=== PATIENT | female | born 1945 | race Caucasian/White ===

== ENCOUNTER 2018-08-15 01:13 | Inpatient (IN) ==
[2018-08-15] MEDS ORDERED: Naloxone 0.4 MG/ML INJ IVP PRN (04:29)
--- NOTE | 2018-08-15 04:46 | Internal Med History&Physical ---
<America Aguayo E - Last Filed: 08/15/18 05:55> Date of Encounter: 08/15/18 Time of Encounter: 03:00 Internal Medicine - H&P: HPI Chief complaint: shortness of breath Admitted From: Home Plans for Post Hospital Care: Home History of present illness: Ms. Ying is a 72 year old female with history of ductal carcinoma of the breast in 2011. {Patient presented to [facility] ED after feeling worse 3 days after being seen at Urgent care for cough. Patient states she has had a cough that has been non productive for the last month and it has progressively gotten worse. She states that it has gotten to the point that it gives her a severe headache and she feels that she cannot get her breath. Approximately 2 weeks ago she was seen at an outside facility and was diagnosed with bronchitis and was given doxycycline which caused her to have diarrhea and to feel achy all over, she continued to take it though because she wanted to get rid of the cough. 3 days ago she presented to urgent care with worsening cough and was told she had pneumonia, was placed on omnicef, zantac, and reglan. She stated she started coughing so hard yesterday that she felt like her insides were bruised and her insisted she go to the ED. She states she has had some chest pain worse with deep breath, headache, chills, nasal congestion, sore throat, body aches, minimal swelling in her ankles, cough worse when lying flat, and diarrhea since starting doxycyline. She denies abdominal pain, dysuria, hesitancy, frequency, urgency. At [facility] her labs showed WBC 10 with neutrophil predominance, HGb 13.4, Na 140, K 3.6 Glu 130, Cr 0.9, GFR >60, AST 1, ALT 17, Alk Phos 101, BNP 76217, LA 1.7, Troponin 0.19 redrawn at 0.18 Vitals at [facility] Temp 98.9, HR 120 RR 22 BP 119/57 Oxygen sat 92% on 2L EKG showed sinus tach Patient was given Furosemide 40mg IV, LEvofloxacin 500mg 1x, methylprenisolone 125mg 1x, albuterol nebulizer and transferred to [place] Social history: past history of smoking quit over 20 years ago, denies alcohol use, denies drug use Family history: mother liver cancer, father congestive heart failure, brother heart disease Past Med Surg Social Fam HX - Past Medical History Medical history: arthritis, cancer Additional medical history: diverticulosis,sleep apnea - Past Surgical History Surgical History: hysterectomy Additional surgical history: hemorrhoidectomy,lumpectomy,rectocele,stent r iliac - Social History Smoking Status: Former smoker Alcohol use: none Drug use: none Internal Medicine - H&P: Meds Aspirin Enteric Coated [Aspirin EC] 81 mg PO DAILY 11/13/14 [History] Cholecalciferol (Vitamin D3) [Vitamin D] 2,000 unit PO DAILY #90 capsule 11/13/14 [Rx] Ibuprofen [Motrin] 4 tab PO PRN PRN 11/13/14 [History] Omeprazole [PriLOSEC] 40 mg PO DAILY 11/13/14 [History] diazePAM [Valium] 5 mg PO QID 07/09/16 [History] Allergy/AdvReac Type Severity Reaction Status Date / Time nitrofurantoin Allergy Rash Verified 02/09/18 15:49 [From Macrodantin] Sulfa (Sulfonamide Allergy Rash Verified 02/09/18 15:49 Antibiotics) tramadol Allergy Rash Verified 02/09/18 15:49 exemestane AdvReac Rash Verified 02/09/18 15:49 letrozole AdvReac Rash Verified 02/09/18 15:49 pegfilgrastim [From Neulasta] AdvReac Cramping Verified 02/09/18 15:49 of the Muscles All Systems PM: A 10-system review of systems was performed and is negative for pertinent findings except as documented above in the HPI. - Constitutional Constitutional: chills, fatigue, no anorexia, no fever(s) - EENT Eyes: no change in vision Ears: no decreased hearing Nose, mouth and throat: dry mouth, nasal congestion, sinus pain, sinus pressure - Cardiovascular Cardiovascular ROS IM: chest pain (with coughing), dyspnea, dyspnea on exertion, edema, no irregular heart rhythm, no lightheadedness, no palpitations - Respiratory Respiratory: cough, dyspnea, dyspnea on exertion, wheezing, pain with cough - Gastrointestinal Gastrointestinal: diarrhea, no constipation, no nausea, no vomiting - Musculoskeletal Musculoskeletal ROS IM: no back pain, no joint swelling - Integumentary Integumentary IM: no new lesions, no pruritus, no rash - Neurological Neurological ROS: no dizziness, no focal weakness, no weakness - Constitutional Vitals: Temp Pulse Resp BP Pulse Ox 98.1 F 104 16 131/81 90 08/15/18 01:50 08/15/18 01:50 08/15/18 01:50 08/15/18 01:50 08/15/18 01:50 Exam: General: AAOx3, moderate distress, answers questions appropriately Head: atruamatic, normocephalic Eyes: NI, no icterus, extraocular movements intact Mouth: mucous membranes moist Neck: trachea midline Cardio: tachycardic, regular rhythm, no murmurs rubs or gallops Resp: tachypnic, increased work of breathing, wheezing throughout bilateral lung leach, diminished breath sound bilateral lower lobes Abdominal: normal bowel sounds, no gaurding or rigidity Extremities: no pedal edema, pulses equal bilaterlaly Skin: warm, dry, intact - Assessment and Plan (1) Acute congestive heart failure Current Visit: Yes Status: Acute Assessment and plan: Patient has symptoms of CHF including cough worse with lying flat Differentials include malignancy, valvular heart disease, ischemic heart disease Elevated troponin 0.19 decreased to 0.18 BNP 27235 EKG showed sinus tachycardia Echocardiogram IV lasix 40mg daily Strict I's and O's DAily weights Cardiology referral Qualifiers: Heart failure type: unspecified Qualified Code(s): I50.9 - Heart failure, unspecified (2) Elevated troponin Current Visit: Yes Status: Acute Assessment and plan: Jesse 0.19 decreased to 0.18 demand ichemia vs underlying ischemic disease EKG showed tachycardia without ischemic changes from Jesse Continue to trend troponins Cardiology referral (3) Pleural effusion Current Visit: Yes Status: Suspected Assessment and plan: CXR from [facility] suspicious for Plueral effusion Differentials include CHF vs Malignant effusion vs infection CT angio ordered Consult Pulmonary for possible tap Serum LDH and Serum Protein ordered (4) DVT prophylaxis Current Visit: Yes Status: Acute Assessment and plan: scds - Time Spent With Patient Total time spent is greater than 50% in coordination of care (as documented) at patient's floor/unit and/or counseling patient: <Bronson Franks A - Last Filed: 08/15/18 07:23> Date of Encounter: 08/15/18 Internal Medicine - H&P: HPI History of present illness: Ms. Ying is a 72 year old female All Systems PM: A 10-system review of systems was performed and is negative for pertinent findings except as documented above in the HPI. - Constitutional Vitals: Temp Pulse Resp BP Pulse Ox 97.8 F 100 16 124/82 90 08/15/18 06:55 08/15/18 06:55 08/15/18 06:55 08/15/18 06:55 08/15/18 06:55 Internal Med - H&P Results - Labs CBC & Chem 7: 08/15/18 05:43 08/15/18 05:43 Labs: Short CBC 08/15/18 Range/Units 05:43 WBC 8.0 (4.3-11.1) K/mcL Hgb 12.9 (11.5-15.4) g/dL Hct 39.1 (35.3-44.9) % Plt Count 233 (140-400) K/mcL Neutrophils # 7.2 (1.6-8.9) K/mcL BMP 08/15/18 05:43 Sodium 139 Potassium 3.2 L Chloride 100 Carbon Dioxide 25 BUN 10 Creatinine 0.81 Glucose 176 H Calcium 9.0 Cardiac Enzymes 08/15/18 Range/Units 05:43 Troponin I 0.15 H* (< 0.04) ng/mL Liver Function 08/15/18 Range/Units 05:43 Total Bilirubin 1.1 H (0.3-1.0) mg/dL AST 14 (13-39) Units/L ALT 9 (7-52) Units/L Alkaline Phosphatase 47 (34-104) Units/L Albumin 3.8 (3.5-5.7) g/dL - Time Spent With Patient Total time spent is greater than 50% in coordination of care (as documented) at patient's floor/unit and/or counseling patient: - Attending Attestation I performed a history and physical examination of the patient and discussed her management with the resident. I reviewed the resident's note and agree with the assessment and plan of care. In short patient is a 72-year-old female with a past medical history of breast cancer status post lumpectomy chemotherapy and radiation in 2012 and GERD who initially presented to [facility] due to complaints of increasing shortness of breath. Patient reports she has been marques ving increased dyspnea on exertion for the past month. She reports dyspnea is worse with laying down. No reports of PND or lower extremity edema or chest pain. She is also reporting a chronic cough that is nonproductive which is also worse with lying down. No reports of fever but does endorse night sweats. Per reports from [facility] chest x-ray showed a large pleural effusion. Troponins were also found to be mildly elevated. Patient was transferred here for further workup for possible CHF and etiology of her pleural effusion. On my assessment patient was lying in bed in no acute distress. She was mildly tachypneic. O2 saturations were 92% on 5 L. Patient is not on oxygen at home. Diminished breath sounds were noted at the left lung base. No evidence of lower extremity edema. Heart regular rate and rhythm. Differential includes CHF exacerbation, malignant pleural effusion given history of breast cancer, or pneumonia among others. We will repeat labs. We will obtain a stat CT angiogram to further assess pleural effusion. We will obtain an echocardiogram. Strict I's and O's. Daily weights. We will continue Lasix 40 mg IV push daily. Consult cardiology. Consider consult pulmonary if findings on CT consistent with a large pleural effusion requiring paracentesis.
[2018-08-15] MEDS ORDERED: Isovue-370 500 ML BOTTLE IVP ONE (05:37)
[2018-08-15 05:55] LABS: Basophils % 0.3 %; Hematocrit 39.1 % (35.3-44.9); Hemoglobin 12.9 g/dL (11.5-15.4); Immature Granulocytes % 0.5 % (0-4); Lymphocytes # 0.5 K/mcL (0.6-4.6); Mean Corpuscular Hemoglobin 29.5 pg (28.0-33.3); Mean Corpuscular Volume 89.3 fL (83.0-100.0); Mean Platelet Volume 10.7 fL (9.4-12.4); Monocytes # 0.2 K/mcL (0.0-1.3); Monocytes % 2.4 %; Neutrophils # 7.2 K/mcL (1.6-8.9); Platelet Count 233 K/mcL (140-400); Red Blood Count 4.38 M/mcL (3.82-4.97); Red Cell Distribution Width 14.1 % (11.5-14.5); Segmented Neutrophils % 90.8 %
[2018-08-15 06:14] LABS: Alanine Aminotransferase 9 Units/L (7-52); Albumin 3.8 g/dL (3.5-5.7); Albumin/Globulin Ratio 1.3 (1.1-2.2); Alkaline Phosphatase 47 Units/L (34-104); Aspartate Amino Transferase 14 Units/L (13-39); BUN/Creatinine Ratio 12 (6-26); Bilirubin,Total 1.1 mg/dL (0.3-1.0); Blood Urea Nitrogen 10 mg/dL (8-23); Carbon Dioxide 25 mEq/L (23-29); Chloride 100 mEq/L (98-107); Glucose 176 mg/dL (70-105); Magnesium 1.7 mg/dL (1.6-2.6); Osmolality,Calculated 291 (280-300); Potassium 3.2 mEq/L (3.5-5.1); Sodium 139 mEq/L (136-145); Total Protein 6.8 g/dL (6.4-8.9); eGFR For Non-African Americans > 60 (> 60)
[2018-08-15 06:18] LABS: Troponin I 0.15 ng/mL (< 0.04)
--- NOTE | 2018-08-15 08:34 | Event Note ---
Date of Encounter: 08/15/18 Time of Encounter: 11:00 Patient was seen and evaluated by hospitalist earlier this morning and also by myself. 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 Apparently patient has recently been treated for bronchitis as an outpatient with doxycycline and later treated for pneumonia with Omnicef. At [facility] ER [place] [address] with a troponin of 0.19. Also on supplemental oxygenation at 2 L/m with O2 sats at 92%. She was given 1 dose of IV Levaquin and IV furosemide in addition to IV Cymetra and transferred to [facility] for further management and evaluation. 1. Bilateral pulmonary embolism CTA revealed small bilateral peripheral pulmonary emboli Lower extremity Dopplers pending Will initiate heparin drip 2. Acute CHF Workup in progress including echocardiogram that is pending Continue IV diuresis 3. Elevated troponin Will monitor on telemetry and trend serial troponins; echocardiogram as above Cardiology consult pending 4 Pleural effusion Patient with bilateral pleural effusions, left greater than right noted on CT angiogram of the chest Suspect secondary to acute CHF above 5. Acute hypoxic respiratory failure He should not currently requiring 5 L/m of nasal cannula
[2018-08-15] MEDS: Aspirin Enteric Coated 81 MG Tablet PO SCH (08:38)
[2018-08-15] MEDS: Furosemide 40 MG/4 ML VIAL IVP SCH (08:38)
[2018-08-15] MEDS: Cholecalciferol (D-3) 1,000 UNIT TABLET PO SCH (08:38)
[2018-08-15] MEDS ORDERED: *HR* Heparin 5,000 UNIT/ML VIAL IVP ONE (12:31)
[2018-08-15] MEDS ORDERED: *HR* Heparin 5,000 UNIT/ML VIAL IVP PRN ×2 (12:31)
--- NOTE | 2018-08-15 12:58 | Cardiology Consult Note ---
Date of Encounter: 08/15/18 Time of Encounter: 12:46 Assessment and Plan (1) SOB (shortness of breath) Current Visit: Yes Status: Acute Clincally could be acute CHF. Would diurese and check echo. Discussion w patient/family: The assessment and plan as outlined above was discussed with the patient and/or family members who expressed understanding and agreement. All questions were answered. Thank you for involving us in the care of your patient. Please call with any questions. History of Present Illness Consult date: 08/15/18 Requesting physician: Rogelio Glez Consult reason: CHF Chief complaint: SOB History of present illness: Ms. Ying is a 72 year old female with no previous cardiac history who presents to hosp with several weeks of SOB. She had been treated for both bronchitis and pneumonia and symptoms did not resolve. She admits do coughing and orthopnea. She has had chest pain but mostly related to coughing. Past Med Surg Social Fam HX - Past Medical History Medical history: arthritis, cancer Additional medical history: diverticulosis,sleep apnea Psychiatric history: anxiety - Past Surgical History Surgical History: hysterectomy Additional surgical history: hemorrhoidectomy,lumpectomy,rectocele,stent r iliac - Social History Smoking Status: Former smoker Smokeless Tobacco Status: No Alcohol use: none Drug use: none Medications and Allergies Aspirin Enteric Coated [Aspirin EC] 81 mg PO DAILY 11/13/14 [History] Cholecalciferol (Vitamin D3) [Vitamin D] 2,000 unit PO DAILY #90 capsule 11/13/14 [Rx] Ibuprofen [Motrin] 4 tab PO PRN PRN 11/13/14 [History] Omeprazole [PriLOSEC] 40 mg PO DAILY 11/13/14 [History] diazePAM [Valium] 5 mg PO QID 07/09/16 [History] Allergy/AdvReac Type Severity Reaction Status Date / Time nitrofurantoin Allergy Rash Verified 02/09/18 15:49 [From Macrodantin] Sulfa (Sulfonamide Allergy Rash Verified 02/09/18 15:49 Antibiotics) tramadol Allergy Rash Verified 02/09/18 15:49 exemestane AdvReac Rash Verified 02/09/18 15:49 letrozole AdvReac Rash Verified 02/09/18 15:49 pegfilgrastim [From Neulasta] AdvReac Cramping Verified 02/09/18 15:49 of the Muscles All Systems Review: The remainder of the systems were reviewed and are negative Physical Examination Vital Signs, Last 4 Hours Temp Pulse Resp BP Pulse Ox 08/15/18 11:01 97.7 F 110 18 122/82 93 General: Conversant, No Apparent Distress HEENT: Atraumatic, Normocephaly, Mucus Membranes Moist Neck: No JVD, Normal carotid pulses Cardiac: Reg Rate and Rhythm, Normal S1 and S2, No Murmur Lungs: Other (Decreased at bases.) Neuro: Alert and responsive, No focal deficits noted Abdomen: Soft, Non-Tender Skin: No rashes noted on visualized skin Results 08/15/18 05:43 08/15/18 05:43 Lab Results 08/15/18 08/15/18 08/15/18 05:43 05:43 05:43 WBC 8.0 Hgb 12.9 Hct 39.1 Plt Count 233 Sodium 139 Potassium 3.2 L Chloride 100 Carbon Dioxide 25 BUN 10 Creatinine 0.81 Glucose 176 H Calcium 9.0 Magnesium 1.7 Total Bilirubin 1.1 H AST 14 ALT 9 Alkaline Phosphatase 47 Troponin I 0.15 H* 08/15/18 11:13 WBC Hgb Hct Plt Count Sodium Potassium Chloride Carbon Dioxide BUN Creatinine Glucose Calcium Magnesium Total Bilirubin AST ALT Alkaline Phosphatase Troponin I 0.12 H* Consult Discharge Plan - Plan Referrals: NONE,PCP [Primary Care Provider] -
[2018-08-15 14:03] LABS: Hematocrit 40.8 % (35.3-44.9); Hemoglobin 13.5 g/dL (11.5-15.4); Mean Corpuscular HGB Conc 33.1 g/dL (31.6-35.5); Mean Corpuscular Hemoglobin 29.4 pg (28.0-33.3); Mean Corpuscular Volume 88.9 fL (83.0-100.0); Mean Platelet Volume 11.3 fL (9.4-12.4); Platelet Count 262 K/mcL (140-400); Red Blood Count 4.59 M/mcL (3.82-4.97)
[2018-08-15 14:10] LABS: Heparin anti-factor XA UFH 0.02 IU/mL (0.30-0.70)
[2018-08-15 14:11] LABS: INR 1.3; Prothrombin Time 14.4 Seconds (9.4-12.1)
[2018-08-15] MEDS: Heparin 25,000 UNIT/250 ML D5W 25,000 UNIT/250 ML IV.SOLN IVC SCH (15:03)
[2018-08-16 08:16] LABS: Basophils % 0.3 %; Eosinophils # 0.1 K/mcL (0.0-0.6); Eosinophils % 1.3 %; Hematocrit 40.5 % (35.3-44.9); Hemoglobin 13.2 g/dL (11.5-15.4); Immature Granulocytes % 0.5 % (0-4); Lymphocytes # 2.1 K/mcL (0.6-4.6); Lymphocytes % 20.3 %; Mean Corpuscular HGB Conc 32.6 g/dL (31.6-35.5); Mean Corpuscular Hemoglobin 29.6 pg (28.0-33.3); Mean Corpuscular Volume 90.8 fL (83.0-100.0); Mean Platelet Volume 11.1 fL (9.4-12.4); Monocytes # 0.9 K/mcL (0.0-1.3); Monocytes % 8.1 %; Neutrophils # 7.3 K/mcL (1.6-8.9); Platelet Count 248 K/mcL (140-400); Red Blood Count 4.46 M/mcL (3.82-4.97); Red Cell Distribution Width 14.3 % (11.5-14.5); Segmented Neutrophils % 69.5 %
[2018-08-16 08:36] LABS: Alanine Aminotransferase 9 Units/L (7-52); Albumin 3.5 g/dL (3.5-5.7); Albumin/Globulin Ratio 1.2 (1.1-2.2); Alkaline Phosphatase 44 Units/L (34-104); Aspartate Amino Transferase 14 Units/L (13-39); BUN/Creatinine Ratio 22 (6-26); Bilirubin,Total 0.8 mg/dL (0.3-1.0); Blood Urea Nitrogen 18 mg/dL (8-23); Carbon Dioxide 28 mEq/L (23-29); Chloride 101 mEq/L (98-107); Cholesterol 233 mg/dL (< 200); Glucose 99 mg/dL (70-105); HDL Cholesterol 58 mg/dL (40-59); LDL Cholesterol,Calculated 159 mg/dL (0-99); Magnesium 1.9 mg/dL (1.6-2.6); Osmolality,Calculated 292 (280-300); Phosphorous 3.9 mg/dL (2.7-4.5); Potassium 3.3 mEq/L (3.5-5.1); Sodium 140 mEq/L (136-145); Total Protein 6.5 g/dL (6.4-8.9); Triglycerides 78 mg/dL (< 150); eGFR For Non-African Americans > 60 (> 60)
--- NOTE | 2018-08-16 10:11 | Internal Med Progress Note ---
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) who presented from) ER with symptoms of orthopnea and shortness of breath found to have acute hypoxic respiratory failure secondary to bilateral pulmonary embolism and pleural effusion with congestive heart failure Patient still requiring increased amount of O2 supplementation this morning - Exam Vitals: Temp Pulse Resp BP Pulse Ox 97.8 F 100 18 123/70 96 08/16/18 08:10 08/16/18 08:10 08/16/18 08:10 08/16/18 08:10 08/16/18 08:10 Exam: Gen.: Nonacute distress, alert and oriented 3 ENT: Mucosal membranes moist Respiratory: Lungs are clear to auscultation bilaterally without any wheezing rhonchi or rales Cardiovascular: Normal S1 and S2 regular rate rhythm no murmurs rubs or gallops Abdomen: Soft, nontender and nondistended with positive bowel sounds Extremities: No lower extremity edema Skin: Normal color - Assessment and Plan (1) Pulmonary embolism, bilateral Current Visit: Yes Status: Acute Assessment and Plan: Patient found to have small bilateral peripheral pulmonary emboli Lower extremity Dopplers pending Patient currently on heparin drip Given patient's history of invasive ductal breast carcinoma and 2013, will consult hematology oncology for recommendations for oral anticoagulation (2) Acute congestive heart failure Current Visit: Yes Status: Acute Assessment and Plan: Patient with a BNP of 427 on admission in addition to pleural effusions on imaging Echocardiogram pending Continue IV diuresis Cardiology following as above (3) Acute respiratory failure with hypoxia Current Visit: Yes Status: Acute Assessment and Plan: Patient requiring supplemental oxygenation at 4 L/m Suspect secondary to the above (4) Pleural effusion Current Visit: Yes Status: Acute Assessment and Plan: Patient on CT angiogram of the chest noted to have bilateral pleural effusions left greater than right Patient with suspected CHF and history of left breast invasive ductal carcinoma in 2013 Will consult pulmonology and appreciate recommendations (5) Elevated troponin Current Visit: Yes Status: Acute Assessment and Plan: Patient with elevated troponins have trended downward Suspect secondary to due to the above Cardiology following and appreciate recommendations (6) Pulmonary nodules Current Visit: Yes Status: Acute Assessment and Plan: Patient also noted to have a right middle lobe pulmonary nodule measuring 1-2 mm in addition to a small noncalcified pulmonary nodule and right lower lobe measuring 5-6 mm Given patient's history of breast cancer, pulmonology consulted and appreciate recommendations (7) Thyroid nodule Current Visit: Yes Status: Acute Assessment and Plan: CT angiogram of the chest, patient was found to have incidental finding of a left thyroid nodule Will order ultrasound for further evaluation DVT Prophylaxis: On heparin drip as above - Time Spent with Patient Total time spent is greater than 50% in coordination of care (as documented) at patient's floor/unit and/or counseling patient: Internal Medicine: Result - Labs CBC & Chem 7: 08/16/18 07:55 08/16/18 07:55 Labs: Short CBC 08/15/18 08/16/18 Range/Units 13:33 07:55 WBC 11.5 H 10.5 (4.3-11.1) K/mcL Hgb 13.5 13.2 (11.5-15.4) g/dL Hct 40.8 40.5 (35.3-44.9) % Plt Count 262 248 (140-400) K/mcL Neutrophils # 7.3 (1.6-8.9) K/mcL BMP 08/16/18 07:55 Sodium 140 Potassium 3.3 L Chloride 101 Carbon Dioxide 28 BUN 18 Creatinine 0.81 Glucose 99 Calcium 9.0 Cardiac Enzymes 08/15/18 08/15/18 Range/Units 11:13 16:28 Troponin I 0.12 H* 0.14 H* (< 0.04) ng/mL Liver Function 08/16/18 Range/Units 07:55 Total Bilirubin 0.8 (0.3-1.0) mg/dL AST 14 (13-39) Units/L ALT 9 (7-52) Units/L Alkaline Phosphatase 44 (34-104) Units/L Albumin 3.5 (3.5-5.7) g/dL - ABG Interpretation ABG results: PT/INR, D-dimer PT 14.4 Seconds (9.4-12.1) H 08/15/18 13:33 - Impressions Impressions Chest CTA 08/15/18 05:37 IMPRESSION: Small bilateral peripheral pulmonary emboli Bilateral pleural effusions with adjacent airspace disease in the lungs either atelectasis or pneumonia. Underlying emphysema with small indeterminate pulmonary nodules.. Consider chest CT in 3-6 months time Dominant thyroid nodule on the left. Consider thyroid ultrasound given its size The findings were sent to the Radiology Results Communication Center at 11:45 am on 08/15/2018to be communicated to a licensed caregiver. D/ / Burak Greenwood MD / Burak Greenwood MD Interpreting Provider: Burak Greenwood MD Consult Discharge Plan - Plan Referrals: NONE,PCP [Primary Care Provider] - (2) Acute congestive heart failure Qualifiers: Heart failure type: unspecified Qualified Code(s): I50.9 - Heart failure, unspecified
[2018-08-16] MEDS: Furosemide 40 MG/4 ML VIAL IVP SCH (10:23)
[2018-08-16] MEDS: Cholecalciferol (D-3) 1,000 UNIT TABLET PO SCH (10:23)
[2018-08-16] MEDS: Aspirin Enteric Coated 81 MG Tablet PO SCH (10:23)
--- NOTE | 2018-08-16 11:41 | Cardiology Progress Note ---
Date of Encounter: 08/16/18 Time of Encounter: 11:40 Assessment and Plan (1) SOB (shortness of breath) Current Visit: Yes Status: Acute Per Cardiology: Suspect multifactorial. On IV Lasix 40 mg daily with I&O net -2523. BNP only 427. CT showed bilateral PE. Awaiting echo results. (2) Pulmonary embolism, bilateral Current Visit: Yes Status: Acute Per Cardiology: CT: IMPRESSION: Small bilateral peripheral pulmonary emboli Bilateral pleural effusions with adjacent airspace disease in the lungs either atelectasis or pneumonia. Underlying emphysema with small indeterminate pulmonary nodules.. Consider chest CT in 3-6 months time On heparin drip. Management per primary service. (3) Elevated troponin Current Visit: Yes Status: Acute Per Cardiology: Troponin is flat and adynamic in setting of acute bilateral PE with peak of 0.15. Echo pending. On heparin drip. No cardiac rehabilitation consult warranted. Suspect type 2 demand ischemia. Discussion w patient/family: The assessment and plan as outlined above was discussed with the patient and/or family members who expressed understanding and agreement. All questions were answered. Thank you for involving us in the care of your patient. Please call with any questions. Subjective Principal diagnosis: SOB Interval history: Reports her shortness of breath has improved during stay. She denies any chest pain or palpitations. Denies any active bleeding or blood loss. Objective Vital Signs, Last 4 Hours Temp Pulse Resp BP Pulse Ox 08/16/18 08:10 97.8 F 100 18 123/70 96 General: Conversant, No Apparent Distress HEENT: Atraumatic, Normocephaly, Mucus Membranes Moist Neck: No JVD, Normal carotid pulses Cardiac: Reg Rate and Rhythm, Normal S1 and S2, No Murmur Lungs: Normal Breath Sounds, No Wheeze, Rales, Rhonchi Neuro: Alert and responsive, No focal deficits noted Abdomen: Soft, Non-Tender Skin: No rashes noted on visualized skin Musculoskeletal: No Chest Wall Tenderness Extremities: No Clubbing, No Cyanosis, No Edema, Normal Pulses Results 08/16/18 07:55 08/16/18 07:55 Lab Results Laboratory Tests 08/15/18 08/15/18 08/15/18 05:43 11:13 13:33 WBC Hgb Hct INR 1.3 Potassium Creatinine Est GFR (Non-Af Amer) AST ALT Troponin I 0.15 H* 0.12 H* B-Natriuretic Peptide LDL Cholesterol, Calc 08/15/18 08/16/18 08/16/18 16:28 07:55 07:55 WBC 10.5 Hgb 13.2 Hct 40.5 INR Potassium 3.3 L Creatinine 0.81 Est GFR (Non-Af Amer) > 60 AST 14 ALT 9 Troponin I 0.14 H* B-Natriuretic Peptide LDL Cholesterol, Calc 159 H 08/16/18 07:55 WBC Hgb Hct INR Potassium Creatinine Est GFR (Non-Af Amer) AST ALT Troponin I B-Natriuretic Peptide 427 H LDL Cholesterol, Calc ITS Impressions Chest CTA 08/15/18 05:37 IMPRESSION: Small bilateral peripheral pulmonary emboli Bilateral pleural effusions with adjacent airspace disease in the lungs either atelectasis or pneumonia. Underlying emphysema with small indeterminate pulmonary nodules.. Consider chest CT in 3-6 months time Dominant thyroid nodule on the left. Consider thyroid ultrasound given its size The findings were sent to the Radiology Results Communication Center at 11:45 am on 08/15/2018to be communicated to a licensed caregiver. D/ / Burak Greenwood MD / Burak Greenwood MD Interpreting Provider: Burak Greenwood MD Active Medications Aspirin (Aspirin Ec) 81 mg PO DAILY [facility] Stop: 02/14/19 09:01 Last Admin: 08/16/18 10:23 Dose: 81 mg Documented by: Furosemide (Lasix) 40 mg IVP DAILY [facility] Stop: 02/14/19 09:01 Last Admin: 08/16/18 10:23 Dose: 40 mg Documented by: Heparin Sodium (Porcine) (Heparin) 5,500 unit 70 unit/kg (5500 unit) IVP Q6HR PRN PRN Reason: SEE COMMENTS Stop: 02/14/19 12:32 Heparin Sodium (Porcine) (Heparin) 2,800 unit 35 unit/kg (2800 unit) IVP Q6H PRN PRN Reason: SEE COMMENTS Stop: 02/14/19 12:32 Heparin Sodium/Dextrose (Heparin 25,000 Unit/250 Ml D5w) 25,000 unit in 250 mls @ 11.088 mls/hr IVC .[id number] [facility]; Protocol Stop: 02/14/19 12:46 Last Titration: 08/16/18 10:20 Dose: 8 unit/kg/hr, 6.3 mls/hr Documented by: Naloxone HCl (Narcan) 0.4 mg IVP Q2MPRN PRN PRN Reason: SEE COMMENTS Stop: 02/14/19 04:30 Omeprazole (Prilosec) 40 mg PO DAILY@0630 [facility]; Protocol Stop: 02/14/19 08:01 Last Admin: 08/16/18 05:19 Dose: 40 mg Documented by: Vitamin D (Vitamin D) 1,000 unit PO DAILY [facility] Stop: 02/14/19 09:01 Last Admin: 08/16/18 10:23 Dose: 1,000 unit Documented by: - Imaging and Cardiology Echo: pending Consult Discharge Plan - Plan Referrals: NONE,PCP [Primary Care Provider] -
[2018-08-16] MEDS ORDERED: Perflutren Lipid Microsphere 1.3 ML in 0.9 % Sodium Chloride 8.7 ML IVP ONE (11:55)
[2018-08-16] MEDS ORDERED: Perflutren Lipid Microsphere 2 ML VIAL ONE (12:06)
--- NOTE | 2018-08-16 12:43 | Pulmonology Consult Note ---
Date of Encounter: 08/16/18 Time of Encounter: 11:10 Assessment and Plan (1) Pulmonary embolism, bilateral Current Visit: Yes Status: Acute Is not clear at this time and this was provoked with her acute illness with diagnosis of bronchitis/pneumonia or this is unprovoked especially with her past medical history of lung cancer. She is on anticoagulation and this time and elevation of troponin and BNP could be a marker related to pulmonary embolism, h owever elevated BNP can be found in congestive heart failure as well. Echocardiogram is pending. Cardiology is seeing the patient. I have seen the echocardiogram and my interpretation right side was functioning well, however we have to wait for the final interpretation from phone counselor. Suspect she will need long-term anticoagulation. He is hemodynamically stable and no need for any thrombolytics at this time. Thank you for consultation. (2) Pleural effusion Current Visit: Yes Status: Acute I have checked pleural effusion with ultrasound and generally small and diuresis is recommended. No need for thoracentesis at this time. (3) Pulmonary nodules Current Visit: Yes Status: Acute Very small lung nodules and not big enough for any biopsies and continue monitoring perhaps in 3-[address] chest is recommended. (4) Acute respiratory failure with hypoxia Current Visit: Yes Status: Acute This is multifactorial from most likely atelectasis and compression atelectasis from pleural effusion as well as pulmonary embolism. Anticoagulation and encourage incentive spirometry as well as diuresis History of Present Illness Consult date: 08/16/18 Requesting physician: Rogelio Glez Reason for consult: pulmonary embolism Chief complaint: Shortness of breath History of present illness: This is a pleasant 72-year-old female with past medical history of breast cancer and she stated that she has been treated for bronchitis and pneumonia and she presented to outside hospital emergency room and she denies any recent travel or any recent surgeries. Patient stated she quit smoking many years ago and she has been having nonproductive cough with no hemoptysis then she was diagnosed with pulmonary embolism with pleural effusion and pulmonary was consulted for evaluation. Patient was treated with antibiotics as outpatient. She did have some chest pain which was worsening with deep breath and she also had headaches and chills with nasal congestion. Patient stated that she is been having negative mammograms. She denies any history of known congestive heart failure and she denies any history of tuberculosis or sick contact. Past Med Surg Social Fam HX - Past Medical History Medical history: arthritis, cancer Additional medical history: diverticulosis,sleep apnea Psychiatric history: anxiety - Past Surgical History Surgical History: hysterectomy Additional surgical history: hemorrhoidectomy,lumpectomy,rectocele,stent r iliac - Social History Smoking Status: Former smoker Smokeless Tobacco Status: No Alcohol use: none Drug use: none Medications and Allergies Aspirin Enteric Coated [Aspirin EC] 81 mg PO DAILY 11/13/14 [History] Cholecalciferol (Vitamin D3) [Vitamin D] 2,000 unit PO DAILY #90 capsule 11/13/14 [Rx] Ibuprofen [Motrin] 4 tab PO PRN PRN 11/13/14 [History] Omeprazole [PriLOSEC] 40 mg PO DAILY 11/13/14 [History] diazePAM [Valium] 5 mg PO QID 07/09/16 [History] Allergy/AdvReac Type Severity Reaction Status Date / Time nitrofurantoin Allergy Rash Verified 02/09/18 15:49 [From Macrodantin] Sulfa (Sulfonamide Allergy Rash Verified 02/09/18 15:49 Antibiotics) tramadol Allergy Rash Verified 02/09/18 15:49 exemestane AdvReac Rash Verified 02/09/18 15:49 letrozole AdvReac Rash Verified 02/09/18 15:49 pegfilgrastim [From Neulasta] AdvReac Cramping Verified 02/09/18 15:49 of the Muscles All Systems: The remainder of the systems were reviewed and are negative Physical Examination Vital Signs: Vital Signs, Last 4 Hours Temp Pulse Resp BP Pulse Ox 08/16/18 12:08 97.6 F 119 18 136/85 97 General appearance: no acute distress Eyes: nonicteric ENT: oropharynx dry Neck: supple, no lymphadenopathy Effort: normal Auscultation: left: rhonchi, bilateral: diminished breath sounds Percussion: bilateral: not dull Cardiovascular: regular rate and rhythm Gastrointestinal: normoactive bowel sounds, non-distended Extremities: no cyanosis, edema normal mental status, non-focal exam mood appropriate Results - Laboratory Findings CBC and BMP: 08/16/18 07:55 08/16/18 07:55 PT/INR, D-dimer PT 14.4 Seconds (9.4-12.1) H 08/15/18 13:33 Abnormal lab findings: Abnormal lab results WBC 11.5 K/mcL (4.3-11.1) H 08/15/18 13:33 0.5 K/mcL (0.6-4.6) L 08/15/18 05:43 PT 14.4 Seconds (9.4-12.1) H 08/15/18 13:33 Heparin Anti-Xa, Unfract 0.85 IU/mL (0.30-0.70) H 08/16/18 07:55 Potassium 3.3 mEq/L (3.5-5.1) L 08/16/18 07:55 Glucose 176 mg/dL (70-105) H 08/15/18 05:43 1.1 mg/dL (0.3-1.0) H 08/15/18 05:43 0.14 ng/mL (< 0.04) H* 08/15/18 16:28 B-Natriuretic Peptide 427 pg/mL (Less than 100) H 08/16/18 07:55 Cholesterol 233 mg/dL (< 200) H 08/16/18 07:55 LDL Cholesterol, Calc 159 mg/dL (0-99) H 08/16/18 07:55 - Diagnostic Findings CT scan - chest: report reviewed, image reviewed - Clinical Findings Intake & Output: Intake & Output 08/15/18 08/16/18 08/16/18 23:59 07:59 15:59 Intake Total 77 / 77 400 / 400 Output Total 250 / 650 400 / 650 Balance 77 / -2673 -250 / -250 0 / -250 Weight 79.5 kg Consult Discharge Plan - Plan Referrals: NONE,PCP [Primary Care Provider] -
[2018-08-17] MEDS: Heparin 25,000 UNIT/250 ML D5W 25,000 UNIT/250 ML IV.SOLN IVC SCH (00:08)
--- NOTE | 2018-08-17 09:26 | Cardiology Progress Note ---
Date of Encounter: 08/17/18 Time of Encounter: 09:30 Assessment and Plan (1) SOB (shortness of breath) Current Visit: Yes Status: Acute Per Cardiology: Suspect multifactorial. Pulm C/S pending. On IV Lasix 40 mg daily with I&O net - 2950ml. BNP 427. CT showed bilateral PE. (2) Pulmonary embolism, bilateral Current Visit: Yes Status: Acute Per Cardiology: CT IMPRESSION: Small bilateral peripheral pulmonary emboli Bilateral pleural effusions with adjacent airspace disease in the lungs either atelectasis or pneumonia. Underlying emphysema with small indeterminate pulmonary nodules.. Consider chest CT in 3-6 months time On heparin drip. Management per primary service. Denies any active bleeding or blood loss. (3) Elevated troponin Current Visit: Yes Status: Acute Per Cardiology: Troponin is flat and adynamic in setting of acute bilateral PE with peak of 0.15-- suspected demand ischemia, however echo results now back: Impressions: LVEF 30-35%.Severe global and segmental left ventricular systolic dysfunction. Mildly dilated left ventricle. Moderate left ventricular diastolic dysfunction. Normal right ventricular size. Mild right ventricular hypokinesis. Mild-moderate mitral regurgitation. Mild-moderate tricuspid regurgitation. Mild to moderate pulmonary hypertension. Moderate pleural effusion. Left Ventricular Wall Motion: Rest Echo Findings The apex, apical inferior, mid inferior, basal inferior, mid anterior, basal anterior, apical septal, mid inferior septal, basal inferior septal, mid anterior lateral, basal anterior lateral, basal anterior septal and basal inferior lateral knowles were hypokinetic. The apical anterior, apical lateral and mid anterior septal knowles were akinetic. The mid inferior lateral wall was not visualized. No previous EF noted (no past echo, ST, or [facility] records seen). On heparin drip and asa. Will Toprol XL and statin. CR c/s placed. Would recommend further ischemic eval, however in acute setting of bilateral PE. Will discuss and review with Dr. Cantor, suspect recs for outpatient eval for [facility] once recovers and anticoagulated for acute PE. Discussion w patient/family: The assessment and plan as outlined above was discussed with the patient and/or family members who expressed understanding and agreement. All questions were answered. Thank you for involving us in the care of your patient. Please call with any questions. Subjective Principal diagnosis: SOB Interval history: Reports her shortness of breath has improved during stay. She denies any chest pain or palpitations. Denies any active bleeding or blood loss. Objective Vital Signs, Last 4 Hours Pulse Resp BP Pulse Ox 08/17/18 07:26 89 17 111/68 98 General: Conversant, No Apparent Distress HEENT: Atraumatic, Normocephaly, Mucus Membranes Moist Neck: No JVD, Normal carotid pulses Cardiac: Reg Rate and Rhythm, Normal S1 and S2, No Murmur Lungs: Normal Breath Sounds, No Wheeze, Rales, Rhonchi Neuro: Alert and responsive, No focal deficits noted Abdomen: Soft, Non-Tender Skin: No rashes noted on visualized skin Musculoskeletal: No Chest Wall Tenderness Extremities: No Clubbing, No Cyanosis, No Edema, Normal Pulses Results 08/16/18 07:55 08/16/18 07:55 Laboratory Tests 08/15/18 05:43 Troponin I 0.15 H* Laboratory Tests 08/16/18 07:55 AST 14 ALT 9 LDL Cholesterol, Calc 159 H ITS Impressions Chest CTA 08/15/18 05:37 IMPRESSION: Small bilateral peripheral pulmonary emboli Bilateral pleural effusions with adjacent airspace disease in the lungs either atelectasis or pneumonia. Underlying emphysema with small indeterminate pulmonary nodules.. Consider chest CT in 3-6 months time Dominant thyroid nodule on the left. Consider thyroid ultrasound given its size The findings were sent to the Radiology Results Communication [facility] at 11:45 am on 08/15/2018to be communicated to a licensed caregiver. D/ / Burak Greenwood MD / Burak Greenwood MD Interpreting Provider: Burak Greenwood MD Echocardiogram 08/16/18 04:59 Impressions: LVEF 30-35%.Severe global and segmental left ventricular systolic dysfunction. Mildly dilated left ventricle. Moderate left ventricular diastolic dysfunction. Normal right ventricular size. Mild right ventricular hypokinesis. Mild-moderate mitral regurgitation. Mild-moderate tricuspid regurgitation. Mild to moderate pulmonary hypertension. Moderate pleural effusion. Left Ventricular Wall Motion: Rest Echo Findings The apex, apical inferior, mid inferior, basal inferior, mid anterior, basal anterior, apical septal, mid inferior septal, basal inferior septal, mid anterior lateral, basal anterior lateral, basal anterior septal and basal inferior lateral knowles were hypokinetic. The apical anterior, apical lateral and mid anterior septal knowles were akinetic. The mid inferior lateral wall was not visualized. Findings: Study Quality * Technically adequate exam. ECG Findings * Normal sinus rhythm. Left Ventricle * LVEF 30-35%.Severe global and segmental left ventricular systolic dysfunction. * Mildly dilated left ventricle. * Moderate left ventricular diastolic dysfunction. * Definity echo contrast was used. * There is no LV thrombus. * Right Ventricle * Normal right ventricular size.Mild right ventricular hypokinesis. * Left Atrium * Moderately dilated left atrium. Right Atrium * Normal right atrial size. Aortic Valve * Aortic valve not well visualized. * Moderately sclerotic aortic valve leaflet (non coronary cusp). * No aortic regurgitation. * No aortic stenosis. Mitral Valve * Mild-moderate mitral regurgitation. * No mitral stenosis. * Mildly calcified mitral valve leaflets. Tricuspid Valve * Mild-moderate tricuspid regurgitation. * Mild to moderate pulmonary hypertension. * Ventriculoatrial pressure is 40mmHg * RA pressure could not be estimated as IVC was not well evaluated Pulmonic Valve * Pulmonic valve not well visualized. Aorta * Normally sized aortic root. Pericardium * There is a trivial pericardial effusion present. * There is no echocardiographic evidence of tamponade. IVC * The IVC is not well evaluated. Pulmonary Artery * Normal visualized portions of the main pulmonary artery. Pleural Effusion * Moderate pleural effusion. Intake & Output 08/14/18 08/15/18 08/16/18 08/17/18 23:59 23:59 23:59 23:59 Intake Total 77 / 77 853 / 853 120 / 120 Output Total 2750 / 2750 950 / 950 300 / 300 Balance -2673 / -2673 -97 / -97 -180 / -180 Weight 79.5 kg 79.4 kg Active Medications Aspirin (Aspirin Ec) 81 mg PO DAILY [facility] Stop: 02/14/19 09:01 Last Admin: 08/16/18 10:23 Dose: 81 mg Documented by: Furosemide (Lasix) 40 mg IVP DAILY [facility] Stop: 02/14/19 09:01 Last Admin: 08/16/18 10:23 Dose: 40 mg Documented by: Heparin Sodium (Porcine) (Heparin) 5,500 unit 70 unit/kg (5500 unit) IVP Q6HR PRN PRN Reason: SEE COMMENTS Stop: 02/14/19 12:32 Heparin Sodium (Porcine) (Heparin) 2,800 unit 35 unit/kg (2800 unit) IVP Q6H PRN PRN Reason: SEE COMMENTS Stop: 02/14/19 12:32 Heparin Sodium/Dextrose (Heparin 25,000 Unit/250 Ml D5w) 25,000 unit in 250 mls @ 11.088 mls/hr IVC .[id number] [facility]; Protocol Stop: 02/14/19 12:46 Last Admin: 08/17/18 00:08 Dose: 8 unit/kg/hr, 6.3 mls/hr Documented by: Naloxone HCl (Narcan) 0.4 mg IVP Q2MPRN PRN PRN Reason: SEE COMMENTS Stop: 02/14/19 04:30 Omeprazole (Prilosec) 40 mg PO DAILY@0630 [facility]; Protocol Stop: 02/14/19 08:01 Last Admin: 08/17/18 06:49 Dose: 40 mg Documented by: Vitamin D (Vitamin D) 1,000 unit PO DAILY [facility] Stop: 02/14/19 09:01 Last Admin: 08/16/18 10:23 Dose: 1,000 unit Documented by: - Imaging and Cardiology Echo: report reviewed Consult Discharge Plan - Plan Referrals: NONE,PCP [Primary Care Provider] -
[2018-08-17] MEDS: Metoprolol XL (24 HR) Succ 25 MG TAB.ER.24H PO SCH (09:50)
[2018-08-17] MEDS: Cholecalciferol (D-3) 1,000 UNIT TABLET PO SCH (09:51)
[2018-08-17] MEDS: Aspirin Enteric Coated 81 MG Tablet PO SCH (09:51)
[2018-08-17] MEDS: Furosemide 40 MG/4 ML VIAL IVP SCH (09:52)
--- NOTE | 2018-08-17 11:10 | Internal Med Progress Note ---
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) who presented from) ER with symptoms of orthopnea and shortness of breath found to have acute hypoxic respiratory failure secondary to bilateral pulmonary embolism and pleural effusion with congestive heart failure Patient still requiring increased amount of O2 supplementation this morning at 3 L/m - Exam Vitals: Temp Pulse Resp BP Pulse Ox 98.0 F 89 17 111/68 98 08/17/18 04:09 08/17/18 07:26 08/17/18 07:26 08/17/18 07:26 08/17/18 07:26 Exam: Gen.: Nonacute distress, alert and oriented 3 ENT: Mucosal membranes moist Respiratory: Lungs are clear to auscultation bilaterally without any wheezing rhonchi or rales Cardiovascular: Normal S1 and S2 regular rate rhythm no murmurs rubs or gallops Abdomen: Soft, nontender and nondistended with positive bowel sounds Extremities: No lower extremity edema Skin: Normal color - Assessment and Plan (1) Pulmonary embolism, bilateral Current Visit: Yes Status: Acute Assessment and Plan: Patient found to have small bilateral peripheral pulmonary emboli Patient still requiring supplemental oxygenation Lower extremity Dopplers negative for DVT/SVT Patient currently on heparin drip Given patient's history of invasive ductal breast carcinoma and 2013, will consult hematology oncology for recommendations for oral anticoagulation (2) Acute congestive heart failure Current Visit: Yes Status: Acute Assessment and Plan: Patient with a BNP of 427 on admission in addition to pleural effusions on imaging Echocardiogram showed LVEF of 30-35% with severe global and segmental left ventricular systolic dysfunction with moderate left ventricular diastolic dysfunction in addition to mild right ventricular hypokinesis. Continue IV diuresis Cardiology following and appreciate recommendations (3) Acute respiratory failure with hypoxia Current Visit: Yes Status: Acute Assessment and Plan: Patient requiring supplemental oxygenation at 4 L/m Suspect secondary to the above We will try to wean O2 as tolerates. (4) Pleural effusion Current Visit: Yes Status: Acute Assessment and Plan: Patient on CT angiogram of the chest noted to have bilateral pleural effusions left greater than right Patient with suspected CHF and history of left breast invasive ductal carcinoma in 2013 Will consult pulmonology and appreciate recommendations (5) Elevated troponin Current Visit: Yes Status: Acute Assessment and Plan: Patient with elevated troponins have trended downward Suspect secondary to due to the above Cardiology following and appreciate recommendations (6) Pulmonary nodules Current Visit: Yes Status: Acute Assessment and Plan: Patient also noted to have a right middle lobe pulmonary nodule measuring 1-2 mm in addition to a small noncalcified pulmonary nodule and right lower lobe measuring 5-6 mm Given patient's history of breast cancer, pulmonology consulted and appreciate recommendations (7) Thyroid nodule Current Visit: Yes Status: Acute Assessment and Plan: CT angiogram of the chest, patient was found to have incidental finding of a left thyroid nodule Will order ultrasound for further evaluation DVT Prophylaxis: On heparin drip as above - Time Spent with Patient Total time spent is greater than 50% in coordination of care (as documented) at patient's floor/unit and/or counseling patient: Internal Medicine: Result - Labs CBC & Chem 7: 08/16/18 07:55 08/16/18 07:55 - ABG Interpretation ABG results: PT/INR, D-dimer PT 14.4 Seconds (9.4-12.1) H 08/15/18 13:33 - Impressions Impressions Echocardiogram 08/16/18 04:59 Impressions: LVEF 30-35%.Severe global and segmental left ventricular systolic dysfunction. Mildly dilated left ventricle. Moderate left ventricular diastolic dysfunction. Normal right ventricular size. Mild right ventricular hypokinesis. Mild-moderate mitral regurgitation. Mild-moderate tricuspid regurgitation. Mild to moderate pulmonary hypertension. Moderate pleural effusion. Left Ventricular Wall Motion: Rest Echo Findings The apex, apical inferior, mid inferior, basal inferior, mid anterior, basal anterior, apical septal, mid inferior septal, basal inferior septal, mid anterior lateral, basal anterior lateral, basal anterior septal and basal inferior lateral knowles were hypokinetic. The apical anterior, apical lateral and mid anterior septal knowles were akinetic. The mid inferior lateral wall was not visualized. Findings: Study Quality * Technically adequate exam. ECG Findings * Normal sinus rhythm. Left Ventricle * LVEF 30-35%.Severe global and segmental left ventricular systolic dysfunction. * Mildly dilated left ventricle. * Moderate left ventricular diastolic dysfunction. * Definity echo contrast was used. * There is no LV thrombus. * Right Ventricle * Normal right ventricular size.Mild right ventricular hypokinesis. * Left Atrium * Moderately dilated left atrium. Right Atrium * Normal right atrial size. Aortic Valve * Aortic valve not well visualized. * Moderately sclerotic aortic valve leaflet (non coronary cusp). * No aortic regurgitation. * No aortic stenosis. Mitral Valve * Mild-moderate mitral regurgitation. * No mitral stenosis. * Mildly calcified mitral valve leaflets. Tricuspid Valve * Mild-moderate tricuspid regurgitation. * Mild to moderate pulmonary hypertension. * Ventriculoatrial pressure is 40mmHg * RA pressure could not be estimated as IVC was not well evaluated Pulmonic Valve * Pulmonic valve not well visualized. Aorta * Normally sized aortic root. Pericardium * There is a trivial pericardial effusion present. * There is no echocardiographic evidence of tamponade. IVC * The IVC is not well evaluated. Pulmonary Artery * Normal visualized portions of the main pulmonary artery. Pleural Effusion * Moderate pleural effusion. Consult Discharge Plan - Plan Referrals: NONE,PCP [Primary Care Provider] - (2) Acute congestive heart failure Qualifiers: Heart failure type: unspecified Qualified Code(s): I50.9 - Heart failure, unspecified
--- NOTE | 2018-08-17 14:27 | Event Note ---
Date of Encounter: 08/17/18 Time of Encounter: 14:30 - Cardiology Event Note Patient reviewed and discussed with Dr. Cantor. I discussed with patient option of outpatient follow-up for further ischemic evaluation versus possible catheterization tomorrow, she prefers outpatient follow-up. Continued medical management. Cardiology signing off, re-consult as needed, will arrange follow- up and discuss catheterization in outpatient setting. All questions answered.
--- NOTE | 2018-08-17 15:13 | Oncology Inp Consult Note ---
<Debra Stovall L - Last Filed: 08/17/18 16:59> Date of Encounter: 08/17/18 Time of Encounter: 13:00 Assessment and Plan (1) Breast cancer, left Status: Acute Assessment and plan: History of Left breast invasive ductal carcinoma. T1 cN0 M0 stage I, initially diagnosed in March,. S/P left breast lumpectomy and sentinel lymph node biopsy, followed by adjuvant TC chemotherapy for 3 cycles which was stopped secondary to toxicity. She completed external beam radiation to her left breast as well as 5 years of endocrine therapy in October, Mammogram 06/15/2018 BIRADS category 2, no evidence of malignancy Plan: She may continue to follow up with Dr. Estrada as an outpatient for continued surveillance She does have evidence of very small pulmonary nodules and small pleural effusion that will need surveillance imaging again in about 3 months time Qualifiers: Qualified Code(s): C50.912 - Malignant neoplasm of unspecified site of left female breast; Z17.0 - Estrogen receptor positive status [ER+] (2) Pulmonary embolism, bilateral Status: Acute Assessment and plan: CTA of the chest shows small bilateral pulmonary emboli BLE venous doppler negative No prior h/o DVT/PE, no provoking factor identified Echo: LVEF 30-35%. Severe global and segmental left ventricular systolic dysfunction. Normal right ventricular size. Mild right ventricular hypokinesis. Cardiology on board, recommending outpatient C Plan: Currently on heparin gtt, recommend transition to DOAC- Xarelto/Eliquis, will need sweet checked for affordability Duration of AC is TBD as outpatient, likely recommend at least 6 months anticoagulation for first unprovoked PE, following shared decision making discussion patient may further stop AC following recommended treatment duration - Data of Consult Patient: known to practice within the last 3 years Consult date: 08/17/18 Requesting Physician: Rogelio Glez Primary Care Provider: PCP NONE - Consult Narrative Reason for consult: Left breast IDC, PE History of present illness: Ms. Ying is a 72 year old female with history of Left breast invasive ductal carcinoma. T1 cN0 M0 stage I, initially diagnosed in March,. Diagnosis: Left breast invasive ductal carcinoma. T1 cN0 M0 stage I. He is status post left breast lumpectomy and sentinel lymph node biopsy, followed by adjuvant TC chemotherapy for 3 cycles which was stopped secondary to toxicity. She completed external beam radiation to her left breast. She was started on Arimidex in October 2012 which was later switched to letrozole after 1 year due to hot flashes. Completed 5 years of antiestrogen treatment in October 2017. Patient endorses that she is not felt well for almost 1 month with shortness of breath, gradually worsening cough, sinus like symptoms and congestion. Diagnosed with bronchitis approximately 2 weeks ago and was given a prescription for an antibiotic and inhaler. Symptoms did not improve which led to presentati on to urgent care about 3 days ago where she was given treatment for pneumonia. SOB and cough symptoms worsened to the point that she presented to [facility] emergency department and was transferred here for further evaluation. CTA of the chest revealed Small bilateral peripheral pulmonary emboli, Bilateral pleural effusions, small indeterminate pulmonary nodules. She has been admitted on heparin gtt. Past Med Surg Social Fam HX - Past Medical History Medical history: arthritis, cancer Additional medical history: diverticulosis,sleep apnea Psychiatric history: anxiety - Past Surgical History Surgical History: hysterectomy Additional surgical history: hemorrhoidectomy,lumpectomy,rectocele,stent r iliac - Social History Smoking Status: Former smoker Smokeless Tobacco Status: No Alcohol use: none Drug use: none Medications and Allergies Cholecalciferol (Vitamin D3) [Vitamin D] 2,000 unit PO DAILY #90 capsule 11/13/14 [Rx] Ibuprofen [Motrin] 800 tab PO Q6H PRN 11/13/14 [History] diazePAM [Valium] 5 mg PO QID PRN 07/09/16 [History] Aspirin [Adult Aspirin Regimen] 81 mg PO DAILY 08/17/18 [History] Cefdinir [Omnicef] 300 mg PO BID 08/17/18 [History] Meclizine [Antivert] 12.5 mg PO BID PRN 08/17/18 [History] Omeprazole [PriLOSEC] 40 mg PO QAM 08/17/18 [History] raNITIdine HCl [Zantac] 150 mg PO BID 08/17/18 [History] Allergy/AdvReac Type Severity Reaction Status Date / Time nitrofurantoin Allergy Rash Verified 02/09/18 15:49 [From Macrodantin] Sulfa (Sulfonamide Allergy Rash Verified 02/09/18 15:49 Antibiotics) tramadol Allergy Rash Verified 02/09/18 15:49 exemestane AdvReac Rash Verified 02/09/18 15:49 letrozole AdvReac Rash Verified 02/09/18 15:49 ondansetron AdvReac See Verified 08/17/18 12:28 Comments pegfilgrastim [From Neulasta] AdvReac Cramping Verified 02/09/18 15:49 of the Muscles Constitutional: Present: anorexia, fatigue, headache(s), lethargy, weight loss. Absent: chills, fever(s), night sweats Eyes: Absent: change in vision Nose, mouth and throat: Present: headache(s), nasal congestion, post-nasal drip Cardiovascular: Absent: chest pain Respiratory: Present: cough, dyspnea. Absent: hemoptysis Gastrointestinal: Absent: abdominal pain, hematochezia, melena, nausea, vomiting Genitourinary: Absent: dysuria Musculoskeletal: Present: muscle weakness. Absent: numbness, tingling Integumentary: Absent: rash, wounds Neurological: Absent: focal weakness Psychiatric: Present: as per HPI Hematologic/Lymphatic: Present: as per HPI. Absent: lymphadenopathy Oncology - Exam - Constitutional General appearance: cooperative, no acute distress, no febrile - Head Head exam: Present: atraumatic - ENT ENT exam: Present: mucous membranes moist, normal oropharynx - Respiratory Respiratory exam: Present: CTAB. Absent: respiratory distress - Cardiovascular Cardiovascular exam: Present: RRR - GI/Abdominal GI/Abdominal exam: Present: normal bowel sounds, soft. Absent: tenderness - Extremities Exam Extremities exam: Present: normal inspection. Absent: calf tenderness - Neurological Exam Neurological exam: Present: alert, oriented X3, no focal deficits, strengths equal and symetr throughout - Psychiatric Psychiatric exam: Present: normal affect, normal mood - Skin Skin exam: Present: dry, normal color, warm Consult Discharge Plan - Plan Referrals: NONE,PCP [Primary Care Provider] - Inpatient Charges Provider: Dr. Jenny Champagne <Jose Angel Champagne - Last Filed: 08/17/18 20:47> Date of Encounter: 08/17/18 - Data of Consult Requesting Physician: Rogelio Glez Primary Care Provider: PCP NONE - Attending Attestation I have seen and examined Ms Ying and agree with the assessment and plan put in place by Renetta. She presented with acute on chronic shortness of breath with associated orthopnea. Examination thus far is consistent with congestive heart failure and associated small bilateral pleural effusions as well as bilateral pulmonary emboli. Nonspecific subcentimeter nodules noted on CT as well. On exam, she is resting comfortably on oxygen. Lungs with mild rales bilaterally. No fever or chills. She has a history of breast cancer and is without rosales evidence of recurrence. CT will need to be repeated in 3 months and this will be arranged as an outpatient. Regarding anticoagulation, a course of Eliquis or Xarelto would be reasonable. I would recommend at least 6 months of anticoagulation, possibly longer given the unprovoked nature. This decision can he made by her primary oncologist in the future. Please evaluate for coverage of DOAC prior to discharge. If she is lacking coverage, Lovenox bridge to coumadin is reasonable. Discussed risks of anticoagulation. Inpatient Charges Provider: Dr. Jenny Champagne Consult - Inpatient Medicare Only: [id number]
[2018-08-18] MEDS ORDERED: Acetaminophen IV 500 MG/50 ML INFUS..BTL IVPB PRN (01:07)
[2018-08-18] MEDS: Ibuprofen 600 MG TABLET PO PRN (04:36)
[2018-08-18 11:32] LABS: Basophils # 0.1 K/mcL (0.0-0.2); Basophils % 1.2 %; Eosinophils # 0.6 K/mcL (0.0-0.6); Eosinophils % 11.2 %; Hematocrit 38.5 % (35.3-44.9); Hemoglobin 12.5 g/dL (11.5-15.4); Immature Granulocytes % 0.8 % (0-4); Lymphocytes # 1.6 K/mcL (0.6-4.6); Lymphocytes % 31.2 %; Mean Corpuscular HGB Conc 32.5 g/dL (31.6-35.5); Mean Corpuscular Hemoglobin 29.6 pg (28.0-33.3); Mean Platelet Volume 11.2 fL (9.4-12.4); Monocytes # 0.5 K/mcL (0.0-1.3); Neutrophils # 2.4 K/mcL (1.6-8.9); Platelet Count 250 K/mcL (140-400); Red Blood Count 4.23 M/mcL (3.82-4.97); Red Cell Distribution Width 13.7 % (11.5-14.5); Segmented Neutrophils % 46.6 %
[2018-08-18 11:48] LABS: BUN/Creatinine Ratio 27 (6-26); Blood Urea Nitrogen 26 mg/dL (8-23); Calcium 9.2 mg/dL (8.6-10.3); Carbon Dioxide 28 mEq/L (23-29); Chloride 101 mEq/L (98-107); Glucose 111 mg/dL (70-105); Osmolality,Calculated 293 (280-300); Potassium 3.3 mEq/L (3.5-5.1); Sodium 139 mEq/L (136-145); eGFR For Non-African Americans 55 (> 60)
[2018-08-18] MEDS: Furosemide 40 MG/4 ML VIAL IVP SCH (11:58)
[2018-08-18] MEDS: Cholecalciferol (D-3) 1,000 UNIT TABLET PO SCH (11:58)
[2018-08-18] MEDS: Aspirin Enteric Coated 81 MG Tablet PO SCH (11:59)
[2018-08-18] MEDS: Metoprolol XL (24 HR) Succ 25 MG TAB.ER.24H PO SCH (11:59)
--- NOTE | 2018-08-18 14:19 | Internal Med Progress Note ---
Hospitalist Progress Note - Encounter Date of Encounter: 08/18/18 Time of Encounter: 14:15 - Subjective Interval History: Evaluated patient earlier today. She feels much better today overall. She continues to require supplemental oxygen. Feels very tired with ambulation. Denies any chest pain or palpitations. Denies any hematemesis or melena. No d ysuria or hematuria. - Exam Vitals: Temp Pulse Resp BP Pulse Ox 97.6 F 88 17 120/67 97 08/18/18 03:52 08/18/18 07:48 08/18/18 07:48 08/18/18 07:48 08/18/18 07:48 Exam: General: Patient is alert, mild distress, oriented x 3 ENT: Mucous membranes moist Respiratory: Decreased breath sounds at both bases, or murmurs. Cardiovascular: Regular rate and rhythm, no murmurs. S1 and S2 normal. No pedal edema Abdomen: Abdomen is soft, nontender. Bowel sounds are present Musculoskeletal: Spontaneously moving all extremities Skin: warm, dry, intact. Neuro: Alert oriented x 3 normal cranial nerves, no focal deficits - Assessment and Plan (1) Acute respiratory failure with hypoxia Current Visit: Yes Status: Acute (2) Pulmonary embolism, bilateral Current Visit: Yes Status: Acute (3) Acute congestive heart failure Current Visit: Yes Status: Acute (4) Elevated troponin Current Visit: Yes Status: Acute (5) Pleural effusion Current Visit: Yes Status: Acute (6) Pulmonary nodules Current Visit: Yes Status: Acute (7) Thyroid nodule Current Visit: Yes Status: Acute DVT Prophylaxis: On IV heparin - Summary of Assessment and Plan Summary of Assessment and Plan: Acute respiratory failure with hypoxia: Due to CHF and PE. Continue treating these conditions. Wean FiO2 as tolerated. Will evaluate for home oxygen prior to discharge. Bilateral pulmonary embolism: Hematology/oncology consult appreciated. Per their recommendations, will run place check on Eliquis. If affordable, will switch to Eliquis. Otherwise will patient will be placed on Lovenox plus Coumadin. Bilateral pleural effusions: Evaluated by pulmonology and have not recommended thoracentesis at this time. Congestive heart failure: Continue Lasix 40 mg daily. Monitor renal function. Transition to oral Lasix tomorrow. Replace potassium. Cardiology plans for left heart catheterization as outpatient Moderate risk for complications. - Time Spent with Patient Total time spent is greater than 50% in coordination of care (as documented) at patient's floor/unit and/or counseling patient: Internal Medicine: Result - Labs CBC & Chem 7: 08/18/18 10:18 08/18/18 10:18 Labs: Short CBC 08/18/18 Range/Units 10:18 WBC 5.1 D (4.3-11.1) K/mcL Hgb 12.5 (11.5-15.4) g/dL Hct 38.5 (35.3-44.9) % Plt Count 250 (140-400) K/mcL Neutrophils # 2.4 (1.6-8.9) K/mcL BMP 08/18/18 10:18 Sodium 139 Potassium 3.3 L Chloride 101 Carbon Dioxide 28 BUN 26 H Creatinine 0.98 Glucose 111 H Calcium 9.2 - ABG Interpretation ABG results: PT/INR, D-dimer PT 14.4 Seconds (9.4-12.1) H 08/15/18 13:33 1175 ng/mLFEU (0-500) H 08/18/18 05:24 - Impressions Impressions Thyroid Ultrasound 08/17/18 17:00 IMPRESSION: Heterogeneous thyroid gland. There is a 2.2 cm solid nodule in the inferior left thyroid lobe, corresponding to the abnormality identified on recent CT chest. ACR TI-RADS TR4: Recommend: Ultrasound-guided fine needle aspiration. RECOMMENDATIONS: ACR TI-RADS recommendations: TR4 (4-6 points): FNA if >= 1.5 cm; follow-up if 1.0-1.4 cm in 1, 2, 3, and 5 years ACR TI-RADS recommends that no more than two nodules with the highest ACR TI-RADS point total should be biopsied and no more than four nodules should be followed. D/ / 08/17/2018 18:19:05 Ned Hirsch MD / bcarter Interpreting Provider: Ned Hirsch MD Consult Discharge Plan - Plan Referrals: NONE,PCP [Non-Partnered Physician] - (3) Acute congestive heart failure Qualifiers: Heart failure type: unspecified Qualified Code(s): I50.9 - Heart failure, unspecified
[2018-08-18] MEDS: Heparin 25,000 UNIT/250 ML D5W 25,000 UNIT/250 ML IV.SOLN IVC SCH (16:57)
[2018-08-19] MEDS: Ibuprofen 600 MG TABLET PO PRN ×2 (02:21→09:06)
[2018-08-19 06:38] LABS: Basophils # 0.1 K/mcL (0.0-0.2); Basophils % 1.2 %; Eosinophils # 0.8 K/mcL (0.0-0.6); Eosinophils % 11.9 %; Hematocrit 38.7 % (35.3-44.9); Hemoglobin 12.7 g/dL (11.5-15.4); Lymphocytes # 2.7 K/mcL (0.6-4.6); Mean Corpuscular HGB Conc 32.8 g/dL (31.6-35.5); Mean Corpuscular Hemoglobin 29.9 pg (28.0-33.3); Mean Corpuscular Volume 91.1 fL (83.0-100.0); Mean Platelet Volume 11.1 fL (9.4-12.4); Monocytes # 0.6 K/mcL (0.0-1.3); Monocytes % 8.8 %; Neutrophils # 2.6 K/mcL (1.6-8.9); Platelet Count 261 K/mcL (140-400); Red Blood Count 4.25 M/mcL (3.82-4.97); Red Cell Distribution Width 13.6 % (11.5-14.5); Segmented Neutrophils % 38.1 %
[2018-08-19 06:52] LABS: Calcium 9.3 mg/dL (8.6-10.3); Potassium 3.8 mEq/L (3.5-5.1)
[2018-08-19 08:17] VITALS: BP 115/63
[2018-08-19] MEDS: Heparin 25,000 UNIT/250 ML D5W 25,000 UNIT/250 ML IV.SOLN IVC SCH ×2 (08:53→11:31)
[2018-08-19] MEDS ORDERED: Furosemide 40 MG TABLET PO SCH (09:00)
[2018-08-19] MEDS: Metoprolol XL (24 HR) Succ 25 MG TAB.ER.24H PO SCH (09:06)
[2018-08-19] MEDS: Aspirin Enteric Coated 81 MG Tablet PO SCH (09:06)
[2018-08-19] MEDS: Cholecalciferol (D-3) 1,000 UNIT TABLET PO SCH (09:06)
--- NOTE | 2018-08-19 11:26 | Discharge Summary ---
- NOTES TO OUTPATIENT PROVIDER Notes to Outpatient Provider: Patient with a history of ductal carcinoma of the breast, arthritis, diverticulosis was hospitalized here with complaints of worsening shortness of breath and cough and was diagnosed with acute congestive heart failure and pleural effusion initially. A CT angiogram of the chest was also done which showed bilateral lower lobe pulmonary emboli. Such patient was placed on IV heparin. Cardiology was consulted as her troponins were also elevated. They evaluated the patient and recommended left heart catheterization but recommended that it be done as outpatient as patient currently has a pulmonary embolism. Patient was evaluated by oncology and recommended direct oral anticoagulants for anticoagulation. Patient has therefore been placed on Eliquis. She is now doing much better overall and she is clinically stable for discharge. She did have a thyroid ultrasound showing a 2.2 cm solid nodule in the inferior left thyroid lobe. This will need fine-needle aspiration which can be arranged as outpatient. Orders not resulted at time of discharge: Pending orders 08/19/18 14:50 Heparin anti-factor XA UFH [COAG] Timed Date of Encounter: 08/19/18 Time of Encounter: 09:30 - Discharge Diagnosis (1) Acute respiratory failure with hypoxia Priority: Primary Status: Acute (2) Pulmonary embolism, bilateral Priority: Secondary Status: Acute (3) Acute congestive heart failure Priority: Secondary Status: Acute Qualifiers: Heart failure type: combined systolic and diastolic Qualified Code(s): I50.41 - Acute combined systolic (congestive) and diastolic (congestive) heart failure (4) Elevated troponin Priority: Secondary Status: Acute (5) Pleural effusion Priority: Secondary Status: Acute (6) Pulmonary nodules Priority: Secondary Status: Acute (7) Thyroid nodule Priority: Secondary Status: Acute Hospital course: Ms. Ying is a 72 year old female Patient with a history of ductal carcinoma of the breast, arthritis, diverticulosis was hospitalized here with complaints of worsening shortness of breath and cough and was diagnosed with acute congestive heart failure and pleural effusion initially. A CT angiogram of the chest was also done which showed bilateral lower lobe pulmonary emboli. Such patient was placed on IV heparin. Cardiology was consulted as her troponins were also elevated. They evaluated the patient and recommended left heart catheterization but recommended that it be done as outpatient as patient currently has a pulmonary embolism. Patient was evaluated by oncology and recommended direct oral anticoagulants for anticoagulation. Patient has therefore been placed on Eliquis. She is now doing much better overall and she is clinically stable for discharge. She did have a thyroid ultrasound showing a 2.2 cm solid nodule in the inferior left thyroid lobe. This will need fine- needle aspiration which can be arranged as outpatient. Recommend checking her basic panel in 1 week as patient is on Lasix. I would also recommend that she be started on low-dose CODIE inhibitor or ARB as outpatient if her blood pressure allows. Patient has been started on multiple medications here and given her elderly age will need close monitoring to prevent medication induced hypotension. Patient had an echocardiogram done here which showed an EF of 30- 35% with moderate left ventricle and diastolic dysfunction. Discharge discussed with: patient - Time Spent with Patient Total time spent providing and/or coordinating discharge services: Time spent: Greater than 30 minutes (45 min) - Discharge Medications Prescriptions: New Apixaban [Eliquis] 10 mg PO BID #90 tablet Atorvastatin [Lipitor] 40 mg PO HS #30 tablet Metoprolol XL (24 HR) Succ [Toprol Xl] 12.5 mg PO DAILY #30 tab.er.24h Ibuprofen [Motrin] 600 mg PO Q6H PRN tablet PRN Reason: Pain Aspirin Enteric Coated [Aspirin EC] 81 mg PO DAILY #30 tablet. Furosemide [Lasix] 20 mg PO BID #60 tablet Potassium Chloride [K-Tab ER] 10 meq PO DAILY #20 tablet.er Continued Cholecalciferol (Vitamin D3) [Vitamin D3] 2,000 unit PO DAILY #90 capsule diazePAM [Valium] 5 mg PO QID PRN PRN Reason: Anxiety Meclizine [Antivert] 12.5 mg PO BID PRN PRN Reason: Nausea Omeprazole [PriLOSEC] 40 mg PO QAM raNITIdine HCl [Zantac] 150 mg PO BID Discontinued Ibuprofen [Motrin] 800 tab PO Q6H PRN PRN Reason: Pain Aspirin [Adult Aspirin Regimen] 81 mg PO DAILY Cefdinir [Omnicef] 300 mg PO BID Home Medications: Cholecalciferol (Vitamin D3) [Vitamin D3] 2,000 unit PO DAILY #90 capsule 11/13/14 [Rx] diazePAM [Valium] 5 mg PO QID PRN 07/09/16 [History] Meclizine [Antivert] 12.5 mg PO BID PRN 08/17/18 [History] Omeprazole [PriLOSEC] 40 mg PO QAM 08/17/18 [History] raNITIdine HCl [Zantac] 150 mg PO BID 08/17/18 [History] Apixaban [Eliquis] 10 mg PO BID #90 tablet 08/19/18 [Rx] Aspirin Enteric Coated [Aspirin EC] 81 mg PO DAILY #30 tablet.dr 08/19/18 [Rx] Atorvastatin [Lipitor] 40 mg PO HS #30 tablet 08/19/18 [Rx] Furosemide [Lasix] 20 mg PO BID #60 tablet 08/19/18 [Rx] Ibuprofen [Motrin] 600 mg PO Q6H PRN tablet 08/19/18 [Rx] Metoprolol XL (24 HR) Succ [Toprol Xl] 12.5 mg PO DAILY #30 tab.er.24h 08/19/18 [Rx] Potassium Chloride [K-Tab ER] 10 meq PO DAILY #20 tablet.er 08/19/18 [Rx] Allergies/Adverse Reactions: Allergy/AdvReac Type Severity Reaction Status Date / Time nitrofurantoin Allergy Rash Verified 02/09/18 15:49 [From Macrodantin] Sulfa (Sulfonamide Allergy Rash Verified 02/09/18 15:49 Antibiotics) tramadol Allergy Rash Verified 02/09/18 15:49 acetaminophen AdvReac Drowsy Verified 08/18/18 01:57 exemestane AdvReac Rash Verified 02/09/18 15:49 letrozole AdvReac Rash Verified 02/09/18 15:49 ondansetron AdvReac See Verified 08/17/18 12:28 Comments pegfilgrastim [From Neulasta] AdvReac Cramping Verified 02/09/18 15:49 of the Muscles Date of admission: 08/15/18 07:36 Primary care physician: Mumtaz Robison Jr, MD Consults: 08/15/18 05:39 Consult to [place] [CONS] Routine Reason for SW Consult: cpap machine not used bc its so old. May need a new one 08/15/18 06:05 Consult to Cardiology [CONS] Routine Comment: Consulting Provider: [facility] [place] Reason for Consult: possible new onset CHF Call Completed: No 08/16/18 10:10 Consult to Pulmonology [CONS] Routine Consulting Provider: [facility] [place] Reason for Consult: Acute hypoxic respiratory failure with pulmonary nodules/pleural effusion Call Completed: Yes 08/16/18 10:26 Consult to Oncology Hematology [CONS] Routine Consulting Provider: Debra Stovall Reason for Consult: OAC recommendations for PE with history of breast cancer Call Completed: No 08/17/18 09:36 Consult to Cardiac Rehabilitation-Phase1 [CONS] Routine Comment: Reason for Consult: elevated trop, NSTEMI? Call Completed: No 08/18/18 14:20 Consult to Occupational Therapy [CONS] Routine Comment: Evaluate, develop and implement POC Reason for Consult: Gen weakness Does patient have active BEDREST order?: No Is patient medically & hemodynamically stable?: Yes Consult to Physical Therapy [CONS] Routine Comment: Evaluate, develop and implement POC Reason for Consult: Gen weakness Does patient have active BEDREST order?: No Is patient medically & hemodynamically stable?: Yes Discharging clinician: Vikash White Anticipated date of discharge: 08/19/18 - Constitutional Vitals: Temp Pulse Resp BP Pulse Ox 97.9 F 98 17 115/63 92 08/19/18 08:15 08/19/18 08:15 08/19/18 08:15 08/19/18 08:15 08/19/18 08:15 Exam: General: Patient is alert, no acute distress, oriented x 3 ENT: Mucous membranes moist Respiratory: Good respiratory effort. Normal breath sounds. No wheezing or crackles. Cardiovascular: Regular rate and rhythm. s1 and s2 normal No clicks, rubs, gallops, or murmurs. No pedal edema Abdomen: Abdomen is soft, nontender. Bowel sounds are present Musculoskeletal: Spontaneously moving all extremities Skin: warm, dry, intact. Neuro: Alert oriented x 3 normal cranial nerves, no focal deficits - Patient Status Disposition: Home, Self-Care Condition: Good Functional capacity at discharge: independent ambulation Overall status at discharge: patient is progressing back to baseline - Discharge Instructions Instructions: Heart Failure (DC), Acute Respiratory Distress Syndrome (DC), Pulmonary Embolism (DC) Follow Up With: Lj Lawler, CODE AND TEST CLERK [Advanced Practice Nurse] - (in 1 week) NONE,PCP [Non-Partnered Physician] - (with PCP in 1 week) Dinorah Estrada MD [Partnered Physician] - (F/U breast cancer surveillance and also thyroid nodule) Additional Instructions: Have a thyroid nodule which needs follow-up as outpatient with possible biopsy. Discuss with your PCP and obtain appropriate referral. Please return to the ER if you notice any blood in her stools or if you become unusually tired and fatigued. - Diet and Activity Activity: increase activity as tolerated Diet: low fat, low cholesterol, low salt diet, other (Fluid restriction to 1.5-2 L per day)
[2018-08-19] MEDS ORDERED: Apixaban 5 MG TABLET PO SCH (11:30)
== END 2018-08-19 13:48 | disposition home or self-care (01) | DRG 175 ==
LOC: 2NENU → SUATTDRO 01:13
PROVIDERS: ADMIT Internal Medicine; ATTEND Internal Medicine